=== PATIENT | male | born 1950 | race Caucasian/White ===

== ENCOUNTER 2017-09-07 14:30 | Inpatient (IN) | payer MEDICARE, OTHER ==
[~2017-09-07] VITALS: Ht 177.8 cm; Wt 154.0 kg
[~2017-09-07 14:30] MED LIST: ALLO300T8 PO; BUDE10.2 IH; DIPH25CA83 PO; FURO80TA87 PO; GABA-532 PO; HYDR-565 PO; LEVO50TA8 PO; WARF4TAB69 PO
[2017-09-07] MEDS ORDERED: HYDROcodone/acetaminophen 10/325mg tab PO ONE (14:40)
[2017-09-07] MEDS ORDERED: normal saline 1000ML IV soln IVB ONE (14:55)
[2017-09-07] MEDS ORDERED: ondansetron/PF 4mg/2ml inj IV ONE (14:55)
[2017-09-07] MEDS ORDERED: HYDROmorphone inj. 0.5 MG/0.5 ML DISP.SYRIN IV PRN (14:55)
[2017-09-07 15:23] LABS: BASOPHILS % (AUTO) 0.2 % (0-1); EOSINOPHILS # (AUTO) 0.1 X10'3 (0-0.9); EOSINOPHILS % (AUTO) 1.8 % (0-6); HEMATOCRIT 43.8 % (42.0-52.0); HEMOGLOBIN 14.7 g/dl (14.0-17.9); LYMPHOCYTES # (AUTO) 1.3 X10'3 (1.1-4.8); MEAN CORPUSCULAR HEMOGLOBIN 30.5 PG (27.0-31.0); MEAN CORPUSCULAR HGB CONC 33.5 % (33.0-36.5); MEAN CORPUSCULAR VOLUME 91.1 FL (78-98); MEAN PLATELET VOLUME 7.8 FL (7.4-10.4); MONOCYTES # (AUTO) 0.4 X10'3 (0-0.9); MONOCYTES % (AUTO) 7.1 % (2-12); NEUTROPHILS # (AUTO) 3.6 X10'3 (1.8-7.7); NEUTROPHILS % (AUTO) 66.9 % (42-75); PLATELET COUNT 171 X10'3 (140-440); RED BLOOD COUNT 4.81 X10'6 (4.70-6.10); RED CELL DISTRIBUTION WIDTH 15.3 % (11.5-14.5); WHITE BLOOD COUNT 5.4 X10'3 (4.5-11.0)
[2017-09-07 15:32] LABS: INR 1.9 INR; PROTHROMBIN TIME 19.2 SECONDS (9.0-12.0)
[2017-09-07 15:38] LABS: ALANINE AMINOTRANSFERASE 53 U/L (12-78); ALBUMIN 3.2 G/DL (3.4-5.0); ALBUMIN/GLOBULIN RATIO 0.9 (1.1-1.5); ALKALINE PHOSPHATASE 75 IU/L (46-116); ANION GAP 12 (8-16); ASPARTATE AMINO TRANSFERASE 38 U/L (10-37); BILIRUBIN,TOTAL 0.8 MG/DL (0.1-1.0); BLOOD UREA NITROGEN 19 MG/DL (7-18); BUN/CREATININE RATIO 14.2 (5.4-32.0); CALCIUM 8.2 MG/DL (8.5-10.1); CHLORIDE 105 MMOL/L (99-107); CREATININE 1.34 MG/DL (0.60-1.10); GLUCOSE 118 MG/DL (70-104); POTASSIUM 4.1 MMOL/L (3.5-5.1); SODIUM 141 MMOL/L (135-145); TOTAL CARBON DIOXIDE 24.1 MMOL/L (24-32); TOTAL PROTEIN 6.6 G/DL (6.4-8.2); eGFR 53 ML/MIN
[2017-09-07 15:48] LABS: CLARITY,URINE CLEAR (Clear); COLOR,URINE YELLOW (Yellow); GLUCOSE, URINE NEGATIVE (Neg); KETONES,URINE NEGATIVE (Neg); LEUKOCYTE ESTERASE ,URINE NEGATIVE (Neg); NITRITES, URINE NEGATIVE (Neg); OCCULT BLOOD,URINE NEGATIVE (Neg); PROTEIN,URINE NEGATIVE (Neg); UROBILINOGEN,URINE 0.2 E.U/dL (0.2-1.0)
[2017-09-07 15:49] LABS: UA COLLECTION TYPE CLN CATCH MIDSTREAM
[2017-09-07] MEDS ORDERED: ondansetron/PF 4mg/2ml inj IV PRN (16:15)
[2017-09-07] MEDS ORDERED: bisacodyl 10mg suppository rectal RC PRN (16:15)
[2017-09-07] MEDS ORDERED: potassium Cl 20 mEq SR tablet PO PRN ×2 (16:15)
[2017-09-07] MEDS ORDERED: potassium Cl 40MEQ/NS 500ml 500 ML IV PRN ×2 (16:15)
[2017-09-07] MEDS ORDERED: magnesium 4gm in 100ml NS 100 ML IV PRN (16:15)
[2017-09-07] MEDS ORDERED: magnesium Cl slow-release 64mg tablet PO PRN (16:15)
[2017-09-07] MEDS ORDERED: acetaminophen 325mg tablet PO PRN (16:15)
[2017-09-07] MEDS ORDERED: magnesium 2GM in 50ml NS 50 ML IV PRN (16:15)
[2017-09-07] MEDS ORDERED: mag hydrox/Alum hydrox/simeth 30ml oral suspension PO PRN (16:15)
[2017-09-07] MEDS ORDERED: diphenhydrAMINE 50 mg/ml inj IV PRN (16:15)
[2017-09-07] MEDS ORDERED: diphenhydrAMINE 25mg capsule PO PRN (16:15)
[2017-09-07] MEDS ORDERED: HYDROcodone/acetaminophen 10/325mg tab PO PRN (16:15)
[2017-09-07] MEDS ORDERED: magnesium hydroxide 30ml (MOM) UD suspension PO PRN (16:15)
[2017-09-07] MEDS ORDERED: morphine 4 MG/ML inj SYRINge IV PRN ×2 (16:15)
[2017-09-07] MEDS ORDERED: pantoprazole 40 MG vial IV ONE (16:30)
[2017-09-07] MEDS: normal saline 1000ml 1,000 ML IV SCH (17:08)
[2017-09-07 19:45] VITALS: BP 121/67
[2017-09-07] MEDS: gabapentin 300mg capsule PO SCH (21:00)
[2017-09-07] MEDS ORDERED: temazepam 15mg capsule PO PRN (21:00)
[2017-09-07 23:00] VITALS: BP 145/72
[2017-09-07] MEDS: acetaminophen 325mg tablet PO PRN (23:12)
[2017-09-08] MEDS: acetaminophen 325mg tablet PO PRN ×3 (05:54→23:43)
[2017-09-08] MEDS: normal saline 1000ml 1,000 ML IV SCH ×2 (05:55→23:43)
[2017-09-08] MEDS ORDERED: phytonadione inj. 5 MG in normal saline 100ml IV soln 99.5 ML IV ONE (06:30)
[2017-09-08 06:38] LABS: BASOPHILS % (AUTO) 0.2 % (0-1); EOSINOPHILS % (AUTO) 0 % (0-6); HEMATOCRIT 39.7 % (42.0-52.0); HEMOGLOBIN 13.5 g/dl (14.0-17.9); LYMPHOCYTES # (AUTO) 1.1 X10'3 (1.1-4.8); LYMPHOCYTES % (AUTO) 13.2 % (21-51); MEAN CORPUSCULAR HGB CONC 34.1 % (33.0-36.5); MEAN CORPUSCULAR VOLUME 90.9 FL (78-98); MEAN PLATELET VOLUME 8.1 FL (7.4-10.4); MONOCYTES # (AUTO) 0.6 X10'3 (0-0.9); MONOCYTES % (AUTO) 6.8 % (2-12); NEUTROPHILS # (AUTO) 6.4 X10'3 (1.8-7.7); NEUTROPHILS % (AUTO) 79.8 % (42-75); PLATELET COUNT 186 X10'3 (140-440); RED BLOOD COUNT 4.37 X10'6 (4.70-6.10); RED CELL DISTRIBUTION WIDTH 14.7 % (11.5-14.5); WHITE BLOOD COUNT 8.1 X10'3 (4.5-11.0)
[2017-09-08 06:48] LABS: INR 1.8 INR; PROTHROMBIN TIME 18.1 SECONDS (9.0-12.0)
[2017-09-08 07:02] LABS: ALBUMIN 2.9 G/DL (3.4-5.0); ANION GAP 8 (8-16); BLOOD UREA NITROGEN 20 MG/DL (7-18); BUN/CREATININE RATIO 15.3 (5.4-32.0); CHLORIDE 108 MMOL/L (99-107); CREATININE 1.31 MG/DL (0.60-1.10); GLUCOSE 105 MG/DL (70-104); POTASSIUM 4.5 MMOL/L (3.5-5.1); SODIUM 143 MMOL/L (135-145); eGFR 55 ML/MIN
[2017-09-08] MEDS: K and/or MAG REPLACEMENT MC SCH (07:16)
[2017-09-08] MEDS: allopurinol 300 MG tablet PO SCH (07:45)
[2017-09-08] MEDS: gabapentin 300mg capsule PO SCH ×2 (07:46→13:00)
[2017-09-08 07:47] VITALS: BP 143/75
[2017-09-08] MEDS ORDERED: levoTHYROXINE 25mcg tablet PO SCH (08:00)
[2017-09-08] MEDS ORDERED: furosemide 40mg tablet PO SCH (08:00)
[2017-09-08 11:12] VITALS: BP 127/76
[2017-09-08] MEDS: fluticasone/vilanterol 200mcg/25mcg inhaler IH SCH (11:19)
[2017-09-08] MEDS ORDERED: FURO40TA4 (13:55)
[2017-09-08] MEDS ORDERED: LEVO137T2 (13:55)
[2017-09-08] MEDS ORDERED: ASCO500C15 PO (13:56)
[2017-09-08] MEDS ORDERED: MULT-1131 PO (13:56)
[2017-09-08] MEDS ORDERED: ALBU6.7H INH (13:57)
[2017-09-08 18:00] VITALS: BP 137/76
[2017-09-08 23:00] VITALS: BP 125/71
[2017-09-09] VITALS (18 sets, daily range): BP systolic 95–152; BP diastolic 52–87
[2017-09-09 05:49] LABS: BASOPHILS % (AUTO) 0.2 % (0-1); EOSINOPHILS % (AUTO) 0.7 % (0-6); HEMOGLOBIN 13.6 g/dl (14.0-17.9); LYMPHOCYTES # (AUTO) 1.2 X10'3 (1.1-4.8); LYMPHOCYTES % (AUTO) 16.8 % (21-51); MEAN CORPUSCULAR HEMOGLOBIN 31.4 PG (27.0-31.0); MEAN CORPUSCULAR VOLUME 89.7 FL (78-98); MEAN PLATELET VOLUME 8.2 FL (7.4-10.4); MONOCYTES # (AUTO) 0.5 X10'3 (0-0.9); MONOCYTES % (AUTO) 7.6 % (2-12); NEUTROPHILS # (AUTO) 5.3 X10'3 (1.8-7.7); NEUTROPHILS % (AUTO) 74.7 % (42-75); PLATELET COUNT 171 X10'3 (140-440); RED BLOOD COUNT 4.34 X10'6 (4.70-6.10); RED CELL DISTRIBUTION WIDTH 14.8 % (11.5-14.5); WHITE BLOOD COUNT 7.1 X10'3 (4.5-11.0)
[2017-09-09 06:07] LABS: ALBUMIN 2.9 G/DL (3.4-5.0); ANION GAP 9 (8-16); BLOOD UREA NITROGEN 17 MG/DL (7-18); BUN/CREATININE RATIO 13.3 (5.4-32.0); CALCIUM 7.9 MG/DL (8.5-10.1); CHLORIDE 107 MMOL/L (99-107); CREATININE 1.28 MG/DL (0.60-1.10); GLUCOSE 105 MG/DL (70-104); INR 1.1 INR; POTASSIUM 3.8 MMOL/L (3.5-5.1); PROTHROMBIN TIME 11.6 SECONDS (9.0-12.0); SODIUM 141 MMOL/L (135-145); TOTAL CARBON DIOXIDE 25.4 MMOL/L (24-32); eGFR 56 ML/MIN
[2017-09-09] MEDS: K and/or MAG REPLACEMENT MC SCH (06:23)
[2017-09-09] MEDS: acetaminophen 325mg tablet PO PRN (07:14)
[2017-09-09] MEDS: levoTHYROXINE 112mcg tablet PO SCH (07:14)
[2017-09-09] MEDS: levoTHYROXINE 25mcg tablet PO SCH (07:15)
[2017-09-09] MEDS: allopurinol 300 MG tablet PO SCH (07:17)
[2017-09-09] MEDS: furosemide 40mg tablet PO SCH (07:17)
[2017-09-09] MEDS ORDERED: ringers solution, lacted 1,000 ML IV ONE (10:51)
[2017-09-09] MEDS: fluticasone/vilanterol 200mcg/25mcg inhaler IH SCH (10:51)
[2017-09-09] MEDS ORDERED: ROPIVAcaine 0.5% (5mg/ml) 30ml vial ONE (12:28)
[2017-09-09] MEDS ORDERED: tetracaine 1% (10mg/ml) pres. free inj. ONE (12:28)
[2017-09-09] MEDS ORDERED: vancomycin 1,000mg inj ONE (12:47)
[2017-09-09] MEDS ORDERED: fentaNYL/PF 50MCG/1 ML 2ML syringe ONE (12:54)
[2017-09-09] MEDS ORDERED: MIDAZolam 5mg/5ml vial ONE (12:55)
[2017-09-09] MEDS ORDERED: ePHEDrine 50MG/ML INJ. ONE (13:45)
[2017-09-09] MEDS ORDERED: ringers solution, lacted 1,000 ML IV SCH (14:41)
[2017-09-09] MEDS ORDERED: fentaNYL/PF 50MCG/1 ML 2ML syringe IV PRN ×2 (14:45)
[2017-09-09] MEDS ORDERED: labetalol 5mg/ml 20ml inj. IV PRN (14:45)
[2017-09-09] MEDS ORDERED: morphine 4 MG/ML inj SYRINge IV PRN ×2 (14:45)
[2017-09-09] MEDS ORDERED: diphenhydrAMINE 50 mg/ml inj IV PRN (14:45)
[2017-09-09] MEDS ORDERED: hydrALAZINE 20mg/ml inj. IV PRN (14:45)
[2017-09-09] MEDS ORDERED: ondansetron/PF 4mg/2ml inj IV PRN ×2 (14:45)
[2017-09-09] MEDS ORDERED: ceFAZolin 1000mg inj ONE ×3 (14:52)
[2017-09-09] MEDS ORDERED: MIDAZolam 1mg/ml 10ml vial ONE (14:53)
[2017-09-09] MEDS ORDERED: ceFAZolin 1GM/D5W- ADD-VANTAGE 50 ML IV ONE (15:00)
[2017-09-09] MEDS ORDERED: lactobacillus rhamnosus 10,000 MMU CELLS/CAPSULE PO SCH (20:00)
[2017-09-10] MEDS ORDERED: cefazolin/dext.iso 2gm/50ml 50 ML IV SCH
[2017-09-10] MEDS: ceFAZolin 2gm in dextrose, iso 100 ML IV SCH ×2 (00:27→09:29)
[2017-09-10 02:00] VITALS: BP 119/66
[2017-09-10] MEDS: HYDROcodone/acetaminophen 5mg/325mg tablet PO PRN (05:27)
[2017-09-10 06:00] VITALS: BP 122/77
[2017-09-10 06:21] LABS: BASOPHILS % (AUTO) 0 % (0-1); EOSINOPHILS # (AUTO) 0.1 X10'3 (0-0.9); EOSINOPHILS % (AUTO) 1.2 % (0-6); HEMATOCRIT 36.6 % (42.0-52.0); HEMOGLOBIN 12.5 g/dl (14.0-17.9); LYMPHOCYTES # (AUTO) 0.6 X10'3 (1.1-4.8); LYMPHOCYTES % (AUTO) 6.3 % (21-51); MEAN CORPUSCULAR HEMOGLOBIN 31.2 PG (27.0-31.0); MEAN CORPUSCULAR HGB CONC 34.1 % (33.0-36.5); MEAN CORPUSCULAR VOLUME 91.4 FL (78-98); MEAN PLATELET VOLUME 8.3 FL (7.4-10.4); MONOCYTES # (AUTO) 0.7 X10'3 (0-0.9); MONOCYTES % (AUTO) 6.8 % (2-12); NEUTROPHILS # (AUTO) 8.3 X10'3 (1.8-7.7); NEUTROPHILS % (AUTO) 85.7 % (42-75); PLATELET COUNT 173 X10'3 (140-440); RED BLOOD COUNT 4.01 X10'6 (4.70-6.10); RED CELL DISTRIBUTION WIDTH 14.5 % (11.5-14.5); WHITE BLOOD COUNT 9.7 X10'3 (4.5-11.0)
[2017-09-10 06:50] LABS: ALBUMIN 2.6 G/DL (3.4-5.0); ANION GAP 8 (8-16); BLOOD UREA NITROGEN 20 MG/DL (7-18); BUN/CREATININE RATIO 15.4 (5.4-32.0); CALCIUM 8.3 MG/DL (8.5-10.1); CHLORIDE 106 MMOL/L (99-107); GLUCOSE 116 MG/DL (70-104); MAGNESIUM 2.2 MG/DL (1.5-2.4); POTASSIUM 4.2 MMOL/L (3.5-5.1); SODIUM 140 MMOL/L (135-145); TOTAL CARBON DIOXIDE 25.6 MMOL/L (24-32); eGFR 55 ML/MIN
[2017-09-10 06:54] LABS: PROTHROMBIN TIME 10.7 SECONDS (9.0-12.0)
[2017-09-10] MEDS: fluticasone/vilanterol 200mcg/25mcg inhaler IH SCH (08:00)
[2017-09-10] MEDS ORDERED: warfarin 4mg tablet PO SCH (08:00)
[2017-09-10] MEDS: K and/or MAG REPLACEMENT MC SCH (08:00)
[2017-09-10] MEDS: levoTHYROXINE 112mcg tablet PO SCH (09:27)
[2017-09-10] MEDS: levoTHYROXINE 25mcg tablet PO SCH (09:28)
[2017-09-10] MEDS: allopurinol 300 MG tablet PO SCH (09:29)
[2017-09-10] MEDS: furosemide 40mg tablet PO SCH (09:29)
[2017-09-10] MEDS: acetaminophen 325mg tablet PO PRN (09:41)
[2017-09-10 10:00] VITALS: BP 119/81
[2017-09-10 18:00] VITALS: BP 134/65
[2017-09-10 22:00] VITALS: BP 131/74
[2017-09-11] MEDS: HYDROcodone/acetaminophen 5mg/325mg tablet PO PRN ×2 (00:12→10:56)
[2017-09-11 05:41] LABS: BASOPHILS # (AUTO) 0.1 X10'3 (0-0.2); BASOPHILS % (AUTO) 0.9 % (0-1); EOSINOPHILS # (AUTO) 0.1 X10'3 (0-0.9); EOSINOPHILS % (AUTO) 0.9 % (0-6); HEMATOCRIT 35.3 % (42.0-52.0); HEMOGLOBIN 12.1 g/dl (14.0-17.9); LYMPHOCYTES # (AUTO) 1.2 X10'3 (1.1-4.8); LYMPHOCYTES % (AUTO) 14.4 % (21-51); MEAN CORPUSCULAR HEMOGLOBIN 31.4 PG (27.0-31.0); MEAN CORPUSCULAR HGB CONC 34.4 % (33.0-36.5); MEAN CORPUSCULAR VOLUME 91.2 FL (78-98); MEAN PLATELET VOLUME 8.2 FL (7.4-10.4); MONOCYTES # (AUTO) 0.7 X10'3 (0-0.9); MONOCYTES % (AUTO) 8.7 % (2-12); NEUTROPHILS # (AUTO) 6.1 X10'3 (1.8-7.7); NEUTROPHILS % (AUTO) 75.1 % (42-75); PLATELET COUNT 190 X10'3 (140-440); RED BLOOD COUNT 3.87 X10'6 (4.70-6.10); RED CELL DISTRIBUTION WIDTH 15.1 % (11.5-14.5); WHITE BLOOD COUNT 8.2 X10'3 (4.5-11.0)
[2017-09-11 06:00] VITALS: BP 125/74
[2017-09-11 06:08] LABS: PROTHROMBIN TIME 10.8 SECONDS (9.0-12.0)
[2017-09-11 06:29] LABS: ALBUMIN 2.5 G/DL (3.4-5.0); ANION GAP 9 (8-16); BLOOD UREA NITROGEN 24 MG/DL (7-18); BUN/CREATININE RATIO 19.7 (5.4-32.0); CALCIUM 8.1 MG/DL (8.5-10.1); CHLORIDE 107 MMOL/L (99-107); CREATININE 1.22 MG/DL (0.60-1.10); GLUCOSE 95 MG/DL (70-104); MAGNESIUM 2.1 MG/DL (1.5-2.4); POTASSIUM 3.9 MMOL/L (3.5-5.1); SODIUM 141 MMOL/L (135-145); TOTAL CARBON DIOXIDE 24.9 MMOL/L (24-32); eGFR 60 ML/MIN
[2017-09-11] MEDS: allopurinol 300 MG tablet PO SCH (07:29)
[2017-09-11] MEDS: levoTHYROXINE 112mcg tablet PO SCH (07:29)
[2017-09-11] MEDS: levoTHYROXINE 25mcg tablet PO SCH (07:29)
[2017-09-11 07:30] VITALS: BP 124/59
[2017-09-11] MEDS: furosemide 40mg tablet PO SCH (07:30)
[2017-09-11] MEDS: K and/or MAG REPLACEMENT MC SCH (08:00)
[2017-09-11] MEDS: fluticasone/vilanterol 200mcg/25mcg inhaler IH SCH (08:12)
[2017-09-11 10:00] VITALS: BP 142/76
[2017-09-11] MEDS ORDERED: warfarin 4mg tablet PO SCH (21:00)
== END 2017-09-11 14:10 | DRG 481 ==
LOC: ER 14:31 → ED HOLD 16:13 → ORTHO 4S 20:16
PROVIDERS: ADMIT Family Medicine; ATTEND Family Medicine
PROC: 2W3RX1Z Immobilization of Left Lower Leg using Splint (ICD-10-PCS; 2017-09-07)
PROC: 3E0T3BZ Introduction of Anesthetic Agent into Peripheral Nerves and Plexi, Percutaneous Approach (ICD-10-PCS; 2017-09-09)
PROC: 0QSC04Z Reposition Left Lower Femur with Internal Fixation Device, Open Approach (ICD-10-PCS; principal; 2017-09-09 13:45)
PROC: 5A09357 Assistance with Respiratory Ventilation, Less than 24 Consecutive Hours, Continuous Positive Airway Pressure (ICD-10-PCS; 2017-09-10)
PROC: 5A09357 Assistance with Respiratory Ventilation, Less than 24 Consecutive Hours, Continuous Positive Airway Pressure (ICD-10-PCS; 2017-09-11)
DX: S72.492A Other fracture of lower end of left femur, initial encounter for closed fracture (principal); D68.51 Activated protein C resistance; Z68.42 Body mass index [BMI] 45.0-49.9, adult; E66.01 Morbid (severe) obesity due to excess calories; M97.02XA Periprosthetic fracture around internal prosthetic left hip joint, initial encounter; D62 Acute posthemorrhagic anemia; Z96.643 Presence of artificial hip joint, bilateral; G89.29 Other chronic pain; E03.9 Hypothyroidism, unspecified; F41.9 Anxiety disorder, unspecified; M71.22 Synovial cyst of popliteal space [Baker], left knee; M19.90 Unspecified osteoarthritis, unspecified site; T45.515A Adverse effect of anticoagulants, initial encounter; M10.9 Gout, unspecified; W01.0XXA Fall on same level from slipping, tripping and stumbling without subsequent striking against object, initial encounter; Y93.01 Activity, walking, marching and hiking; Z79.01 Long term (current) use of anticoagulants; Z79.899 Other long term (current) drug therapy; Z88.7 Allergy status to serum and vaccine; Z86.718 Personal history of other venous thrombosis and embolism; Y92.89 Other specified places as the place of occurrence of the external cause; Y99.8 Other external cause status
CPT/HCPCS: 36415; 71045; 73552; 73564; 76001; 80048; 80053; 81003; 83735; 85025; 85610; 87070; 93005; 94640; 94760; 96361; 96374; 97116; 97162; 97530; 99285; A6222; A6449; A7000; C1713; C1758; C9113; J0690; J2250; J2405; J2795; J3010; J3370; J3430; J7030; J7120; L1832